=== PATIENT | male | born 1955 | race Caucasian/White ===

== ENCOUNTER 2021-09-07 10:09 | Outpatient (CLI) | payer MEDICARE, OTHER, SELFPAY ==
--- NOTE | ~2021-09-07 | MR_ITS ---
EXAMINATION: MR abdomen wo/w con DATE: 09/07/2021 11:22 INDICATION: Cirrhosis of the liver. TECHNIQUE: Magnetic resonance imaging (MRI) of the abdomen was performed without and with 17 mL Multi Gely intravenous contrast. Sequences included coronal T2-weighted FS FSE, coronal and axial FS FIEST A, axial T2-weighted FSE, coronal LAVA-flex, axial STIR FSE, axial DWI, axial dual-echo T1-weighted F SPGR, and axial LAVA. Postcontrast sequences included coronal LAVA-flex and a time course of axial LA VA. COMPARISON: Abdomen MRI 12/05/2016, ultrasound 10/03/2017 FINDINGS: The liver demonstrates heterogeneous steatosis and surface nodularity, consistent with cirrhosis. The gallbladder is normal. The spleen is normal in size. There is peripheral nodular enhancement in the spleen, likely an old hematoma. The pancreas, adrenal glands, and left kidney are normal. There is a 2.2 cm cyst with a few thin septa in right kidney (Bosniak type II, likely benign). There are no dila phyllis loops of bowel. There are no pathologically enlarged lymph nodes. There is no free intraperitonea l fluid. The bladder is distended. IMPRESSION: 1. Cirrhosis of the liver. No evidence of malignancy. Reviewed, dictated and finalized at location A.
[2021-09-07 10:47] LABS: Estimated Glomerular Filt Rate > 60
== END 2021-09-07 10:10 | disposition home or self-care (01) ==
PROVIDERS: Visit Provider Nurse Practitioner Family
DX: K70.30 Alcoholic cirrhosis of liver without ascites (principal); N28.1 Cyst of kidney, acquired
CPT/HCPCS: 74183; A9577

== ENCOUNTER → 2022-11-08 13:34 | Outpatient (CLI) | payer MEDICARE, SELFPAY ==
--- NOTE | ~2022-11-08 | MR_ITS ---
EXAMINATION: MR abdomen wo/w con INDICATION: Renal mass TECHNIQUE: Coronal SSFSE ARC, WATER:coronal LAVA-FLEX, Coronal 2D FIESTA FatSat, Axial SSFSE BH ARC, Axial 3D DualEcho BH, Axial SSFSE-IR, Axial DWI b=500, Axial 2D FIESTA FatSat, pre and dynamic postco ntrast Axial LAVA ARC, postcontrast Coronal In and Opposed phase LAVA FLEX COMPARISON: 09/07/2021 CONTRAST: Multihance, 18 cc FINDINGS: There is loss of hepatic parenchymal signal on opposed phase imaging, consistent with hepat ic steatosis. There is nodularity of the liver surface. There is a crescentic area of hypoenhancement at the lateral margin of the spleen, likely old hematoma. The pancreas, gallbladder, adrenal glands, and left kidney are normal. There is a stable 2.2 cm cyst of the right kidney lower pole with thin i nternal septation. There are no pathologically enlarged abdominal lymph nodes. There are no dilated l oops of bowel. IMPRESSION: 1. Stable right kidney mass with thin septation (Bosniak type II). 2. Diffuse hepatic steatosis with liver cirrhosis. Reviewed, dictated and finalized at location F.
== END ==
PROVIDERS: PCP Family Medicine; Visit Provider Family Medicine
DX: N28.89 Other specified disorders of kidney and ureter (principal); K76.0 Fatty (change of) liver, not elsewhere classified
CPT/HCPCS: 74183; A9577

== ENCOUNTER → 2023-03-21 09:58 | Outpatient (CLI) | payer MEDICARE, SELFPAY ==
--- NOTE | ~2023-03-21 | MR_ITS ---
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 These were followed by axial T2-weigh phyllis, diffusion weighted, gradient, and FLAIR images. Thin cut coronal and axial T1-weighted and T2-we ighted images were acquired through the internal auditory canals. Following intravenous administratio n of 17 cc MultiHance gadolinium, T1-weighted fat-sat imaging was performed the brain in the axial an d coronal planes. Thin cut T1-weighted postcontrast imaging was also performed through the internal a uditory canals in the axial and coronal planes. Findings: There are focal probable chronic lacunar infarcts in the left basal ganglia/left thalamus. No other signal abnormality seen in the brain parenchyma. No acute infarct, intracranial hemorrhage, or mass lesion identified. Ventricles and subarachnoid spaces are unremarkable. Orbits are unremarkable. Paranasal sinuses and m astoid air cells are clear. Major intracranial flow voids are intact. In particular, visualized basil ar artery flow void appears unremarkable. Sagittal midline structures are intact. No abnormal mass lesion seen at the internal auditory canals or cerebellopontine angle regions. No abnormal postcontrast enhancement identified. IMPRESSION: Basilar artery is grossly unremarkable on this exam. Probable very small chronic lacunar infarcts at the left basal ganglia/left thalamus, otherwise unrem arkable exam. Reviewed, dictated and finalized at [facility]. IMPRESSION: Basilar artery is grossly unremarkable on this exam. Probable very small chronic lacunar infarcts at the left basal ganglia/left aren lamus, otherwise unremarkable exam.
--- NOTE | ~2023-03-21 | MR_ITS ---
MRA NECK History: Occlusion and stenosis of basilar artery Technique: Pre and postcontrast MRA of the neck was performed. 17 cc of MultiHance gadolinium was adm inistered intravenously for the postcontrast MR imaging. Findings: Both vertebral arteries are patent and show antegrade flow and appear normal. Right and lef t common carotid arteries and the right and left cervical internal carotid arteries and external irene tid arteries appear normal. The proximal right internal carotid artery demonstrates 0% stenosis relat veronique to the normal distal artery lumen diameter. The proximal left internal carotid artery demonstrate s 0% stenosis relative to the normal distal artery lumen diameter. Basilar artery and posterior cerebral arteries are also patent. Impression: No occlusion or stenosis. Reviewed, dictated and finalized at location M. Impression: No occlusion or stenosis.
== END ==
PROVIDERS: PCP Psychiatry & Neurology Neurology; Visit Provider Psychiatry & Neurology Neurology
DX: R42 Dizziness and giddiness (principal); I65.1 Occlusion and stenosis of basilar artery; I65.09 Occlusion and stenosis of unspecified vertebral artery
CPT/HCPCS: 70549; 70553; A9577

== ENCOUNTER → 2023-05-08 09:15 | Outpatient (CLI) | payer MEDICARE, SELFPAY ==
--- NOTE | ~2023-05-08 | US_ITS ---
Limited Abdominal Sonogram: Real-time sonographic imaging of the right upper quadrant was performed. Clinical History: Cirrhosis, hepatic steatosis Findings: The liver appears mildly heterogeneous, with no evidence of mass lesion or bile duct dilat ation. Main portal vein demonstrates normal direction of flow. The gallbladder is well distended, and appears normal with no evidence of gallstone or wall thickening. The common bile duct measures 7 mm. The visualized pancreas, aorta, and IVC are unremarkable. Impression: Heterogeneous hepatic echotexture could reflect fatty infiltration versus other chronic liver disease . Correlate clinically. Reviewed, dictated and finalized at [facility]. IC OFFICE MANAGER Impression: Heterogeneous hepatic echotexture could reflect fatty infiltration versus other chronic liver disease. Correlate clinically.
== END ==
PROVIDERS: PCP Family Medicine
DX: K74.69 Other cirrhosis of liver (principal); K70.0 Alcoholic fatty liver
CPT/HCPCS: 76705